=== PATIENT | male | born 1945 | race Caucasian/White ===

== ENCOUNTER 2017-03-07 14:52 | Emergency (ER) | payer MEDICARE ==
[2017-03-07 16:36] LABS: Hematocrit 37 % (42-52); Hemoglobin 12.5 g/dl (14.0-18.0); Mean Corpuscular HGB Conc 34 g/dl (31-36); Mean Corpuscular Hemoglobin 32 pg (27-31); Mean Corpuscular Volume 93 fL (80-94); Mean Platelet Volume 8 um3 (7.4-10.4); Red Blood Count 3.94 10^6/ul (4.0-5.4); Red Cell Distribution Width 14 % (10.5-15); White Blood Count 7.3 10^3/ul (3.5-10.8)
--- NOTE | 2017-03-07 16:40 | RAD ---
INDICATION: Possible seizure COMPARISON: July 09, 2016 TECHNIQUE: Noncontrast axial source images were acquired from the skull base to the vertex. FINDINGS: Ventricles/sulci: There is cortical atrophy with compensatory dilatation of the CSF spaces. Brain parenchyma: There is bilateral subfrontal encephalomalacia consistent most consistent prior traumatic insult. The appearance is unchanged. There is moderate microvascular ischemic change in the periventricular regions. Intracranial hemorrhage:None. Extra-axial spaces: There are no abnormal extra axial fluid collections or evidence of extra-axial mass. Calvarium: There is prior trauma about the right frontal region and right orbit appearing similar to the prior examination.. Scalp: There is no evidence of scalp or extracalvarial soft tissue abnormality. Paranasal sinuses/mastoid: The paranasal sinuses and mastoid air cells are clear. Other: None. IMPRESSION: No acute intracranial findings. 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
[2017-03-07 16:51] LABS: Albumin 4.1 g/dL (3.2-5.2); BUN/Creatinine Ratio 18.6 (8-20); C Reactive Protein 15.91 mg/L (< 5.00); Calcium 9.3 mg/dL (8.6-10.3); EGFR African American 175.2 (>60); EGFR Non-African American 136.2 (>60); Globulin 2.5 g/dL (2-4); Potassium 4.1 mmol/L (3.5-5.0); Total Bilirubin 0.3 mg/dL (0.2-1.0); Total Protein 6.6 g/dL (6.4-8.9)
--- NOTE | 2017-03-07 16:53 | RAD ---
INDICATION: Rib pain. COMPARISON: Comparison is made with a prior chest x-ray study from July 09, 2016. TECHNIQUE: A portable view of the chest was obtained. FINDINGS: Cardiac and mediastinal contours appear to be within normal limits. The lungs are underinflated and clear. No pleural effusion is seen. IMPRESSION: NO EVIDENCE FOR ACUTE FINDING.
[2017-03-07 18:59] LABS: Phenytoin 12.1 mcg/mL (10-20)
[2017-03-07] MEDS ORDERED: NS 0.9% 1000 ML* 1,000 ML IV ONE (19:13)
[2017-03-07 20:26] LABS: Urine Bacteria Absent (Absent); Urine Bilirubin Negative (Negative); Urine Glucose Negative (Negative); Urine Nitrite Negative (Negative)
--- NOTE | 2017-03-07 21:03 | RAD ---
Indication: Right rib pain, abdominal pain. CT of the chest, abdomen and pelvis was performed without oral or IV contrast administration. Coronal and sagittal reconstructed images were obtained. Inferior thyroid lobes are unremarkable. No definite mediastinal or hilar adenopathy is noted. Calcified lymph nodes are noted in the right hilum noted measuring up to 11 mm. The heart demonstrates no pericardial effusion. The trachea and major bronchi appear patent. The lung villanueva demonstrate no evidence of alveolar consolidation. No focal nodules are identified. Dependent changes are noted. No pleural fluid is identified. Liver is normal in size. No focal lesions or intrahepatic ductal dilatation is noted. Gallbladder is partially contracted. Pancreas demonstrates no mass or pancreatic duct dictation. Common duct is not dilated. Spleen is normal in size. There is a hiatal hernia noted. No adrenal lesions are noted. The kidneys demonstrate no hydronephrosis. No retroperitoneal lymphadenopathy is noted. No dilated loops of bowel are noted. Aorta is unremarkable. Inferior vena cava filter is in place. CT of the pelvis demonstrates prostate and urinary bladder to be unremarkable. There is a periumbilical hernia containing omentum. No inguinal hernias are noted. The bony structures demonstrates degenerative changes of the hip joints. There is evidence of old C7 through 10 rib fractures on the right. No other recent rib fractures are noted. IMPRESSION: Hiatal hernia is noted. There is a periumbilical hernia containing omentum. Inferior vena cava filter is in place. No other masses or fluid collections are noted.
[2017-03-07 22:04] VITALS: BP 130/73
--- NOTE | 2017-03-07 22:23 | ED ---
Lissa Jarvis Michael, scribed for Harmony Butt MD on 03/07/17 at 1638 . Complex/Multi-Sys Presentation - HPI Summary HPI Summary: 71 y/o male was sent to the ED from [facility] by ambulance. 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 Pt with 3 days of severe screaming in pain intermittently and pt has had 4 self reported sz within the last 2 days per nursing staff. He also c/o right rib after 2 mechanical falls 4 days ago. As per nursing staff patient complains of irritation of the condom catheter. - History Of Current Complaint Chief Complaint: EDGeneral Time Seen by Provider: 03/07/17 15:14 Hx Obtained From: Patient, Family/Lead Web Developer, EMS, Medical Records Onset/Duration: Sudden Onset, Lasting Days, Still Present Timing: Intermittent, Lasting: Severity Currently: Mild Severity Initially: Mild Location: Pain At: - right chest wall Associated Signs And Symptoms: Positive: Weakness, Other - sz. right chest wall pain. - Allergies/Home Medications Allergies/Adverse Reactions: Allergies Allergy/AdvReac Type Severity Reaction Status Date / Time horse serum Allergy Unknown Uncoded 02/26/13 21:08 Reaction Details PMH/Surg Hx/FS Hx/Imm Hx Endocrine/Hematology History: Reports: Hx Anticoagulant Therapy Denies: Hx Anemia Cardiovascular History: Reports: Other Cardiovascular Problems/Disorders - ANTICOAGULANT THERAPY Respiratory History: Reports: Hx Chronic Bronchitis, Other Respiratory Problems/ Disorders - dx bronchitis 12/21/13 Denies: Hx Asthma GI History: Denies: Hx Jaundice Sensory History: Reports: Hx Contacts or Glasses Opthamlomology History: Reports: Hx Contacts or Glasses Neurological History: Reports: Hx Seizures - Surgical History Surgery Procedure, Year, and Place: hx of dvt Infectious Disease History: No Infectious Disease History: Denies: Traveled Outside the [place] in Last 30 Days - Family History Known Family History: Positive: Other - breast CA - Social History Occupation: Disabled Lives: Assisted Living Alcohol Use: None Substance Use Type: Reports: None Smoking Status (MU): Never Smoked Tobacco Have You Smoked in the Last Year: No Review of Systems Positive: Other - right chest wall pain Neurological: Other - history of seizure All Other Systems Reviewed And Are Negative: Yes Physical Exam Triage Information Reviewed: Yes Vital Signs On Initial Exam: Initial Vitals Temp Pulse Resp BP Pulse Ox 97.8 F 71 20 130/76 99 03/07/17 14:57 03/07/17 14:57 03/07/17 14:57 03/07/17 14:57 03/07/17 14:57 Vital Signs Reviewed: Yes Appearance: Positive: Well-Appearing, No Pain Distress, Obese Skin: Positive: Warm, Skin Color Reflects Adequate Perfusion, Dry Head/Face: Positive: Normal Head/Face Inspection Eyes: Positive: EOMI, STEVAN, Conjunctiva Clear ENT: Positive: Pharynx normal, TMs normal Neck: Positive: Supple, Nontender Respiratory/Lung Sounds: Positive: Clear to Auscultation, Breath Sounds Present. Negative: Rales, Rhonchi, Wheezes Cardiovascular: Positive: RRR, Pulses are Symmetrical in both Upper and Lower Extremities. Negative: Murmur, Rub Abdomen Description: Positive: Nontender, No Organomegaly, Soft. Negative: Distended, Guarding, Peritoneal Signs Bowel Sounds: Positive: Present Male Genital Exam: Positive: normal genitalia - condom catherter in good position Musculoskeletal: Positive: Strength/ROM Intact Neurological: Positive: Sensory/Motor Intact, Other - alert and oriented to name and of date. answers questions slowly but correctly. Negative: Cerebellar Dysfunction Psychiatric: Positive: Affect/Mood Appropriate - Moss Coma Scale Coma Scale Total: 14 Diagnostics - Vital Signs Vital Signs Temp Pulse Resp BP Pulse Ox 03/07/17 15:20 97.8 F 71 20 130/76 99 03/07/17 14:57 97.8 F 71 20 130/76 99 - Laboratory Lab Results: Lab Results 03/07/17 03/07/17 03/07/17 Range/Units 16:20 16:20 16:20 WBC 7.3 (3.5-10.8) 10^3/ul RBC 3.94 L (4.0-5.4) 10^6/ul Hgb 12.5 L (14.0-18.0) g/dl Hct 37 L (42-52) % MCV 93 (80-94) fL MCH 32 H (27-31) pg MCHC 34 (31-36) g/dl RDW 14 (10.5-15) % Plt Count 242 (150-450) 10^3/ul MPV 8 (7.4-10.4) um3 Neut % (Auto) 67.9 (38-83) % Lymph % (Auto) 17.9 L (25-47) % [place] % (Auto) 11.1 H (1-9) % Eos % (Auto) 2.6 (0-6) % Baso % (Auto) 0.5 (0-2) % Absolute Neuts (auto) 5.0 (1.5-7.7) 10^3/ul Absolute Lymphs (auto) 1.3 (1.0-4.8) 10^3/ul Absolute Monos (auto) 0.8 (0-0.8) 10^3/ul Absolute Eos (auto) 0.2 (0-0.6) 10^3/ul Absolute Basos (auto) 0 (0-0.2) 10^3/ul Absolute Nucleated RBC 0 10^3/ul Nucleated RBC % 0 INR (Anticoag Therapy) (0.89-1.11) APTT (26.0-36.3) seconds Sodium 127 L (133-145) mmol/L Potassium 4.1 (3.5-5.0) mmol/L Chloride 93 L (101-111) mmol/L Carbon Dioxide 31 (22-32) mmol/L Anion Gap 3 (2-11) mmol/L BUN 11 (6-24) mg/dL Creatinine 0.59 L (0.67-1.17) mg/dL Est GFR ( Amer) 175.2 (>60) Est GFR (Non-Af Amer) 136.2 (>60) BUN/Creatinine Ratio 18.6 (8-20) Glucose 107 H (70-100) mg/dL Lactic Acid 1.0 (0.5-2.0) mmol/L Calcium 9.3 (8.6-10.3) mg/dL Total Bilirubin 0.30 (0.2-1.0) mg/dL AST 14 (13-39) U/L ALT 12 (7-52) U/L Alkaline Phosphatase 183 H (34-104) U/L Total Creatine Kinase 67 (10-223) U/L CK-MB (CK-2) 2.7 (0.6-6.3) ng/mL Troponin I 0.00 (<0.04) ng/mL C-Reactive Protein 15.91 H (< 5.00) mg/L Total Protein 6.6 (6.4-8.9) g/dL Albumin 4.1 (3.2-5.2) g/dL Globulin 2.5 (2-4) g/dL Albumin/Globulin Ratio 1.6 (1-3) Lipase 39 (11.0-82.0) U/L Urine Color Urine Appearance Urine pH (5-9) Ur Specific [place] (1.010-1.030) Urine Protein (Negative) Urine Ketones (Negative) Urine Blood (Negative) Urine Nitrate (Negative) Urine Bilirubin (Negative) Urine Urobilinogen (Negative) Ur Leukocyte Esterase (Negative) Urine WBC (Auto) (Absent) Urine RBC (Auto) (Absent) Ur Squamous Epith Cells (Absent) Amorphous Crystals (Absent) Urine Bacteria (Absent) Urine Glucose (Negative) Phenytoin 12.1 (10-20) mcg/mL 03/07/17 03/07/17 Range/Units 16:20 20:10 WBC (3.5-10.8) 10^3/ul RBC (4.0-5.4) 10^6/ul Hgb (14.0-18.0) g/dl Hct (42-52) % MCV (80-94) fL MCH (27-31) pg MCHC (31-36) g/dl RDW (10.5-15) % Plt Count (150-450) 10^3/ul MPV (7.4-10.4) um3 Neut % (Auto) (38-83) % Lymph % (Auto) (25-47) % [place] % (Auto) (1-9) % Eos % (Auto) (0-6) % Baso % (Auto) (0-2) % Absolute Neuts (auto) (1.5-7.7) 10^3/ul Absolute Lymphs (auto) (1.0-4.8) 10^3/ul Absolute Monos (auto) (0-0.8) 10^3/ul Absolute Eos (auto) (0-0.6) 10^3/ul Absolute Basos (auto) (0-0.2) 10^3/ul Absolute Nucleated RBC 10^3/ul Nucleated RBC % INR (Anticoag Therapy) 1.97 H (0.89-1.11) APTT 35.9 (26.0-36.3) seconds Sodium (133-145) mmol/L Potassium (3.5-5.0) mmol/L Chloride (101-111) mmol/L Carbon Dioxide (22-32) mmol/L Anion Gap (2-11) mmol/L BUN (6-24) mg/dL Creatinine (0.67-1.17) mg/dL Est GFR ( Amer) (>60) Est GFR (Non-Af Amer) (>60) BUN/Creatinine Ratio (8-20) Glucose (70-100) mg/dL Lactic Acid (0.5-2.0) mmol/L Calcium (8.6-10.3) mg/dL Total Bilirubin (0.2-1.0) mg/dL AST (13-39) U/L ALT (7-52) U/L Alkaline Phosphatase (34-104) U/L Total Creatine Kinase (10-223) U/L CK-MB (CK-2) (0.6-6.3) ng/mL Troponin I (<0.04) ng/mL C-Reactive Protein (< 5.00) mg/L Total Protein (6.4-8.9) g/dL Albumin (3.2-5.2) g/dL Globulin (2-4) g/dL Albumin/Globulin Ratio (1-3) Lipase (11.0-82.0) U/L Urine Color Yellow Urine Appearance Cloudy Urine pH 8.0 (5-9) Ur Specific [place] 1.006 L (1.010-1.030) Urine Protein Negative (Negative) Urine Ketones Negative (Negative) Urine Blood Negative (Negative) Urine Nitrate Negative (Negative) Urine Bilirubin Negative (Negative) Urine Urobilinogen Negative (Negative) Ur Leukocyte Esterase 1+ H (Negative) Urine WBC (Auto) 1+(6-10/hpf) H (Absent) Urine RBC (Auto) Trace(0-2/hpf) (Absent) Ur Squamous Epith Cells Present H (Absent) Amorphous Crystals Present H (Absent) Urine Bacteria Absent (Absent) Urine Glucose Negative (Negative) Phenytoin (10-20) mcg/mL Result Diagrams: 03/07/17 16:20 03/07/17 16:20 Lab Statement: Any lab studies that have been ordered have been reviewed, and results considered in the medical decision making process. - Radiology CXR Xray Interpretation: No Acute Changes Radiology Interpretation Completed By: Radiologist - CT CT Brain CT Interpretation: Positive (See Comments) - No acute intracranial findings. 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 CT Interpretation Completed By: Radiologist CT Chest/ABD/PEL CT Interpretation: Positive (See Comments) - Hiatal hernia is noted. There is a periumbilical hernia containing omentum. Inferior vena cava filter is in place. No other masses or fluid collections are noted. CT Interpretation Completed By: Radiologist - EKG EKG EKG Rhythm: Sinus Rhythm - 81 EKG Interpretation: no acute ischemic changes Complex Multi-Symp Course/Dx Course Of Treatment: Discussed patient care with tube mill operator of Mr. In[facility]'s assisted living home at [facility]. She states he does not have chronic pain, but he will bend over and scream in pain. She believes it is kidney stones, so an CT will be done. After imaging results the pt is dx with medical evaluation and umbilical hernia. Discussed again with Mr. Ingram's assited living home tube mill operator about the treatment for the umbilical hernia. Will be refered to surgery - Diagnoses Provider Diagnoses: Evaluation by medical service required, Umbilical hernia Discharge - Discharge Plan Condition: Stable Disposition: HOME Patient Education Materials: Umbilical Hernia (ED) Referrals: Los Morris MD [Medical Doctor] - Additional Instructions: Please follow up with your Dr. Morris (Surgery) within the next 2 days. The documentation as recorded by the Lissa major Michael accurately reflects the service I personally performed and the decisions made by Daquan ballard Afoma Frances, MD.
== END 2017-03-07 22:09 | disposition home or self-care (01) ==
LOC: ED 14:52
DX: K42.9 Umbilical hernia without obstruction or gangrene (principal); R53.1 Weakness; R07.89 Other chest pain
CPT/HCPCS: 36415; 70450; 71010; 71250; 74176; 80053; 80185; 81003; 81015; 82550; 82553; 83605; 83690; 84484; 85025; 85610; 85730; 86140; 87077; 87086; 87186; 93005; 99283

== ENCOUNTER 2017-03-15 22:05 | Emergency (ER) | payer MEDICARE ==
--- NOTE | 2017-03-15 23:06 | ED ---
Alex Jarvsi Benjamin, scribed for Doyle Pierre MD on 03/15/17 at 2224 . Abdominal Pain/Male - HPI Summary HPI Summary: 71yo male BIB EMS from retirement reportedly for abdominal pain. Pt is non- verbal. Was seen in the ED last week for similar complaint. - History of Current Complaint Stated Complaint: ABD PAIN Time Seen by Provider: 03/15/17 22:07 Hx Obtained From: EMS Hx From Patient Unobtainable Due To: Other - non verbal Onset/Duration: Sudden Onset, Still Present Timing: Constant Severity Initially: Mild Severity Currently: Mild Location: Diffuse Radiates: No Aggravating Factor(s): Nothing Alleviating Factor(s): Nothing Associated Signs And Symptoms: Positive: Negative - Allergies/Home Medications Allergies/Adverse Reactions: Allergies Allergy/AdvReac Type Severity Reaction Status Date / Time horse serum Allergy Unknown Uncoded 02/26/13 21:08 Reaction Details PMH/Surg Hx/FS Hx/Imm Hx Endocrine/Hematology History: Reports: Hx Anticoagulant Therapy Denies: Hx Anemia Cardiovascular History: Reports: Other Cardiovascular Problems/Disorders - ANTICOAGULANT THERAPY Respiratory History: Reports: Hx Chronic Bronchitis, Other Respiratory Problems/ Disorders - dx bronchitis 12/21/13 Denies: Hx Asthma GI History: Denies: Hx Jaundice Sensory History: Reports: Hx Contacts or Glasses Opthamlomology History: Reports: Hx Contacts or Glasses Neurological History: Reports: Hx Seizures - Surgical History Surgery Procedure, Year, and Place: hx of dvt - Family History Known Family History: Positive: Other - breast CA - Social History Occupation: Retired Lives: [facility] Alcohol Use: None Substance Use Type: Reports: None Smoking Status (MU): Never Smoked Tobacco Have You Smoked in the Last Year: No Review of Systems Constitutional: Negative Eyes: Negative ENT: Negative Cardiovascular: Negative Respiratory: Negative Positive: Abdominal Pain Genitourinary: Negative Musculoskeletal: Negative Skin: Negative Positive: Headache Psychological: Normal All Other Systems Reviewed And Are Negative: Yes Physical Exam Triage Information Reviewed: Yes Vital Signs On Initial Exam: Initial Vitals Temp Pulse Resp BP Pulse Ox 98.9 F 75 20 121/70 100 03/15/17 22:49 03/15/17 22:49 03/15/17 22:49 03/15/17 22:49 03/15/17 22:49 Vital Signs Reviewed: Yes Completion Of Physical Exam Limited Due To: Level 5 Appearance: Positive: No Pain Distress, Well-Nourished Skin: Positive: Warm Head/Face: Positive: Normal Head/Face Inspection Eyes: Positive: STEVAN ENT: Positive: Pharynx normal Neck: Positive: Supple Respiratory/Lung Sounds: Positive: Breath Sounds Present Cardiovascular: Positive: Normal Abdomen Description: Positive: Nontender, Soft, Distended - mildly Bowel Sounds: Positive: Present Diagnostics - Vital Signs Vital Signs Temp Pulse Resp BP Pulse Ox 03/15/17 22:49 98.9 F 75 20 121/70 100 - Laboratory Result Diagrams: 03/15/17 23:39 03/15/17 23:39 Lab Statement: Any lab studies that have been ordered have been reviewed, and results considered in the medical decision making process. - CT CT A/P WO CT Interpretation: Positive (See Comments) - moderate size hiatal hernia CT Interpretation Completed By: Radiologist Abdominal Pain Fem Course/Dx - Diagnoses Provider Diagnoses: Abdominal pain, Hiatal hernia Discharge - Discharge Plan Condition: Stable Disposition: HOME Patient Education Materials: Abdominal Pain (ED) Referrals: Erica Li MD [Primary Care Provider] - The documentation as recorded by the Alex major Benjamin accurately reflects the service I personally performed and the decisions made by me, Doyle Pierre MD.
[2017-03-15 23:45] LABS: Hematocrit 37 % (42-52); Hemoglobin 12.5 g/dl (14.0-18.0); Mean Corpuscular HGB Conc 34 g/dl (31-36); Mean Corpuscular Hemoglobin 32 pg (27-31); Mean Corpuscular Volume 95 fL (80-94); Mean Platelet Volume 7 um3 (7.4-10.4); Red Blood Count 3.93 10^6/ul (4.0-5.4); Red Cell Distribution Width 14 % (10.5-15); White Blood Count 8.1 10^3/ul (3.5-10.8)
[2017-03-16] LABS: BUN/Creatinine Ratio 23.8 (8-20); C Reactive Protein 12.57 mg/L (< 5.00); Calcium 8.7 mg/dL (8.6-10.3); EGFR African American 162.4 (>60); EGFR Non-African American 126.3 (>60); Globulin 2.6 g/dL (2-4); Magnesium 2.3 mg/dL (1.9-2.7); Potassium 4.4 mmol/L (3.5-5.0); Total Bilirubin 0.3 mg/dL (0.2-1.0); Total Protein 6.6 g/dL (6.4-8.9)
[2017-03-16 01:31] LABS: Urine Bilirubin Negative (Negative); Urine Glucose Negative (Negative); Urine Nitrite Negative (Negative)
[2017-03-16 04:02] VITALS: BP 162/120
--- NOTE | 2017-03-16 07:40 | RAD ---
INDICATION: Abdominal pain COMPARISON: CT chest/abdomen/pelvis March 08, 2017 TECHNIQUE: Noncontrast axial source images were obtained from the hemidiaphragms to the symphysis pubis. This examination was ordered using a renal stone protocol which is performed without oral or intravenous contrast and therefore has inherent limitations when used to evaluate other intra-abdominal or intrapelvic pathology. Consider conventional contrast enhanced imaging if clinically indicated. Lung bases: There are emphysematous changes in lung bases. There is mild dependent atelectasis. There are calcified hilar lymph nodes. Liver: The liver is normal in size. Noncontrast imaging shows no evidence of a hepatic mass or ductal dilatation. Gallbladder: There are no calcified gallstones. There is no evidence of wall thickening or pericholecystic fluid.. Spleen: The spleen is normal in size. The noncontrast CT appearance is normal. Pancreas: Noncontrast imaging shows no pancreatic mass or ductal dilitation. Adrenal glands: No masses are identified. Kidneys/Bladder: There is no evidence of nephrolithiasis or CT evidence of hydronephrosis. Noncontrast imaging shows no evidence of a renal mass. The bladder is unremarkable.. Adenopathy: There is no evidence of intraperitoneal or retroperitoneal adenopathy. Evaluation is limited without oral contrast. Fluid collections: There are no free or localized fluid collections. Vessels: The aorta and iliac vessels are normal in caliber. There are no significant atherosclerotic changes. There is an IVC filter. Pelvic organs: The prostate and seminal vesicles appear normal GI tract: Evaluation is limited without oral contrast. There is a large hiatal hernia. The upper GI tract is otherwise unremarkable. There is large amount stool throughout the colon. There is no evidence of obstruction. Soft tissues: There is a fat-containing periumbilical hernia. There is prior midline laparotomy. Osseous structures: There are no acute osseous findings. IMPRESSION: No acute CT findings. No mass or inflammatory changes. Large hiatal hernia. Large amount retained stool. Small periumbilical hernia.
== END 2017-03-16 01:10 | disposition home or self-care (01) ==
LOC: ED 22:05
DX: K44.9 Diaphragmatic hernia without obstruction or gangrene (principal); R10.9 Unspecified abdominal pain
CPT/HCPCS: 36415; 74176; 80053; 81003; 83605; 83690; 83735; 85025; 85610; 86140; 99283

== ENCOUNTER 2017-03-27 00:20 | Emergency (ER) | payer MEDICARE ==
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
[2017-03-27 02:02] LABS: Hematocrit 38 % (42-52); Hemoglobin 12.9 g/dl (14.0-18.0); Mean Corpuscular HGB Conc 34 g/dl (31-36); Mean Corpuscular Hemoglobin 32 pg (27-31); Mean Corpuscular Volume 94 fL (80-94); Mean Platelet Volume 8 um3 (7.4-10.4); Red Blood Count 4.07 10^6/ul (4.0-5.4); Red Cell Distribution Width 14 % (10.5-15); White Blood Count 6.9 10^3/ul (3.5-10.8)
[2017-03-27 02:18] LABS: Albumin 3.8 g/dL (3.2-5.2); BUN/Creatinine Ratio 24.6 (8-20); Calcium 8.9 mg/dL (8.6-10.3); EGFR African American 168.6 (>60); EGFR Non-African American 131.1 (>60); Globulin 2.6 g/dL (2-4); Magnesium 2.2 mg/dL (1.9-2.7); Potassium 4.1 mmol/L (3.5-5.0); Total Bilirubin 0.2 mg/dL (0.2-1.0); Total Protein 6.4 g/dL (6.4-8.9)
[2017-03-27 03:34] VITALS: BP 127/78
--- NOTE | 2017-03-27 04:55 | ED ---
Demetris Jarvis Aidan, scribed for Jamshid Courtney on 03/27/17 at 0256 . Progress - Progress Note Progress Note: The patient was signed out to Dr. Courtney. Imaging was reviewed. the patient will be discharged with a diagnosis of seizure disorder. He is currently free of seizures. BRAIN CT IMPRESSION: No new changes (Dr. Courtney) Course/Dx - Diagnoses Provider Diagnoses: Seizure-like activity, Seizure disorder The documentation as recorded by the Demetris major Aidan accurately reflects the service I personally performed and the decisions made by Roz ballard Emmanuel.
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
== END 2017-03-27 04:00 | disposition home or self-care (01) ==
LOC: ED 00:20
DX: G40.909 Epilepsy, unspecified, not intractable, without status epilepticus (principal); Z79.01 Long term (current) use of anticoagulants
CPT/HCPCS: 36415; 70450; 80053; 82977; 83605; 83735; 85025; 85610; 93005; 99282

== ENCOUNTER 2017-05-23 13:37 | Emergency (ER) | payer MEDICARE ==
--- NOTE | 2017-05-23 13:54 | PN ---
Progress Note - Progress Note Date of Service: 05/23/17 Note: pt was seen as a CAT call for near syncope/possible seizure in men's bathroom. Pt was assisted off his wheelchair to toilet seat when his legs gave away and he was lowered to the floowr. He told the aide present that he was having a seizure. No reported LOC, no seizure like activity. On initial eval pt has mild dysarthia, AAOx2, neurologically otherwise intact apart for s light flattening of R nasolabial fold. Pt was transported to ED for further evaluation, case signed off to Dr. See.
--- NOTE | 2017-05-23 14:43 | RAD ---
Indication: Confusion. CT of the brain was performed without IV contrast. Comparison is made with previous exam dated March 27, 2017. Ventricular structures are midline. No midline shift. Encephalomalacia in the frontal lobes bilaterally is noted unchanged from prior exam. Prominent extra-axial spaces are noted. Encephalomalacia is noted in the left frontal lobe. Right posterior temporal lobe encephalomalacia is also present. Overall there is no evidence of space-occupying lesion. No evidence of hemorrhage is noted. Chronic changes of the right maxillary sinus is noted. IMPRESSION: Atrophy. Bifrontal encephalomalacia unchanged from previous exam. No acute changes are identified.
--- NOTE | 2017-05-23 14:47 | RAD ---
Indication: Cough. Seizure. History of bronchitis. Comparison: March 07, 2017 CT Technique: Upright AP 1415 hours Report: No pulmonary infiltrate, focal pulmonary lesion, pleural effusion, pneumothorax. Suggestion of mild cardiomegaly however portable AP technique limits assessment of heart size. Mild prominence of the RIGHT hilum correlates with calcified lymph nodes on prior CT. Unremarkable central pulmonary vasculature. Mildly tortuous descending thoracic aorta. IMPRESSION: 1. No evidence for acute intrathoracic disease. 2. Stigmata of prior granulomatous disease.
[2017-05-23 15:35] LABS: Hematocrit 50 % (42-52); Hemoglobin 16.5 g/dl (14.0-18.0); Mean Corpuscular HGB Conc 33 g/dl (31-36); Mean Corpuscular Hemoglobin 32 pg (27-31); Mean Corpuscular Volume 96 fL (80-94); Mean Platelet Volume 9 um3 (7.4-10.4); Red Blood Count 5.24 10^6/ul (4.0-5.4); Red Cell Distribution Width 14 % (10.5-15); White Blood Count 6.7 10^3/ul (3.5-10.8)
[2017-05-23 17:56] LABS: Phenytoin 14.1 mcg/mL (10-20)
[2017-05-23 17:59] LABS: ALT 22 U/L (7-52); Albumin 4.8 g/dL (3.2-5.2); Alkaline Phosphatase 158 U/L (34-104); BUN/Creatinine Ratio 14.3 (8-20); Blood Urea Nitrogen 9 mg/dL (6-24); CO2 Carbon Dioxide 25 mmol/L (22-32); Calcium 9.4 mg/dL (8.6-10.3); EGFR African American 162.4 (>60); EGFR Non-African American 126.3 (>60); Globulin 3.7 g/dL (2-4); Glucose 82 mg/dL (70-100); Total Protein 8.5 g/dL (6.4-8.9)
[2017-05-23 18:46] VITALS: BP 129/81
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
[2017-05-23 22:18] LABS: Anion Gap 9 mmol/L (2-11); Chloride 100 mmol/L (101-111); Sodium 134 mmol/L (133-145)
== END 2017-05-23 19:11 | disposition home or self-care (01) ==
LOC: ED 13:37
DX: R55 Syncope and collapse (principal)
CPT/HCPCS: 36415; 70450; 71010; 80053; 80184; 80185; 83605; 84484; 85025; 85610; 93005; 99283